=== PATIENT | male | born 1935 | race Caucasian/White ===

== ENCOUNTER 2021-11-07 12:41 | Inpatient (IN) | payer BC, MEDICARE ==
[~2021-11-07] VITALS: Ht 165.1 cm; Wt 74.4 kg
[~2021-11-07 12:41] MED LIST: FINA5TAB11 PO; LEVO500T89 MT; TAMS-11 MT
[2021-11-07] MEDS ORDERED: DILTIAZEM HCL 5MG/ML 5ML VIAL IV ONE (14:15)
[2021-11-07 14:21] LABS: BASOPHILS % 0.2 % (0.0-2.0); HEMATOCRIT. 40.1 % (42.0-52.0); LYMPHOCYTES % 7.6 % (20.0-50.0); MEAN CORPUSCULAR HEMOGLOBIN 28.6 pg (28.0-32.0); MEAN CORPUSCULAR VOLUME 88.4 fL (80.0-94.0); MEAN PLATELET VOLUME 8.2 fl (7.4-10.4); MONOCYTES % 10.3 % (2.0-8.0); NEUTROPHILS % 81.9 % (40.0-76.0); PLATELET 305 x1000/uL (130-400); RED BLOOD CELL COUNT 4.54 mill/uL (4.7-6.1); RED CELL DISTRIBUTION WIDTH 15.3 % (11.6-14.6)
[2021-11-07 14:31] LABS: CHLORIDE 106 mEq/L (98-107)
[2021-11-07] MEDS ORDERED: DILTIAZEM HCL 120MG CAPSULE CD 24HR PO ONE (15:00)
[2021-11-07] MEDS ORDERED: FUROSEMIDE 40MG/4ML VIAL IVP NR (15:30)
[2021-11-07] MEDS ORDERED: POTASSIUM CHLORIDE 20MEQ TABLET SR PO NR (15:45)
[2021-11-07 15:56] LABS: INR 1.4; PROTHROMBIN TIME 14.8 sec (9.6-11.0)
[2021-11-07] MEDS: METOPROLOL TARTRATE 25MG TABLET PO SCH ×2 (15:57→21:00)
[2021-11-07 16:06] LABS: MEAN CORPUSCULAR VOLUME 86.7 fL (80.0-94.0); MEAN PLATELET VOLUME 8.2 fl (7.4-10.4); PLATELET 263 x1000/uL (130-400); RED BLOOD CELL COUNT 4.26 mill/uL (4.7-6.1); RED CELL DISTRIBUTION WIDTH 15.5 % (11.6-14.6)
[2021-11-07 16:11] LABS: CHLORIDE 106 mEq/L (98-107)
[2021-11-07] MEDS ORDERED: FUROSEMIDE 20MG/2ML VIAL IVP SCH (16:15)
[2021-11-07] MEDS ORDERED: NITROGLYCERIN OINT 1GM/INCH UDPKT TD ONE (16:15)
[2021-11-07] MEDS ORDERED: GUAIFENESIN 200MG/10ML SUGAR FREE UDC PO PRN (16:45)
[2021-11-07] MEDS ORDERED: NITROGLYCERIN OINT 1GM/INCH UDPKT TD NR (16:45)
[2021-11-07] MEDS ORDERED: IPRATROPIUM/ALBUTEROL 0.5-3(2.5)MG/3ML NEB NEB PRN (16:45)
[2021-11-07] MEDS ORDERED: DOCUSATE SODIUM 100MG CAPSULE PO PRN (16:45)
[2021-11-07] MEDS ORDERED: ZOLPIDEM TARTRATE 5MG TABLET PO PRN (16:45)
[2021-11-07] MEDS ORDERED: ONDANSETRON HCL 4MG/2ML INJ IV PRN (16:45)
[2021-11-07] MEDS ORDERED: ACETAMINOPHEN 325MG TABLET PO PRN ×2 (16:45)
[2021-11-07] MEDS ORDERED: MAGNESIUM/ALUMINUM HYDROXIDE/SIMETHICONE 30ML UDC PO PRN (16:45)
[2021-11-07] MEDS ORDERED: TRAMADOL 50MG TABLET PO PRN (16:45)
[2021-11-07] MEDS ORDERED: NITROGLYCERIN 0.4MG TABLET SL SL PRN (16:45)
[2021-11-07] MEDS ORDERED: CLONIDINE 0.1MG TABLET PO PRN (16:45)
[2021-11-07 17:18] LABS: PLATELET ESTIMATE NORMAL
[2021-11-07 17:30] LABS: DIGOXIN 0.2 ng/mL (0.9-2.0)
[2021-11-07 17:39] LABS: CLARITY URINE CLEAR (CLEAR); COLOR URINE YELLOW (YELLOW); KETONES URINE TRACE (NEGATIVE); LEUKOCYTE ESTERASE URINE NEGATIVE (NEGATIVE); NITRITE URINE NEGATIVE (NEGATIVE); OCCULT BLOOD URINE NEGATIVE (NEGATIVE); PROTEIN URINE NEGATIVE (NEGATIVE); SPECIFIC GRAVITY URINE 1.016 (1.005-1.030)
[2021-11-07 17:40] LABS: FOLIC ACID (FOLATE) SERUM 13.9 ng/mL (>5.38)
[2021-11-07 17:50] LABS: *AMPHETAMINES SCREEN URINE NEGATIVE (NEGATIVE); CANNABINOID URINE SCREEN NEGATIVE (NEGATIVE); OPIATES URINE SCREEN NEGATIVE (NEGATIVE); PHENCYCLIDINE URINE SCREEN NEGATIVE (NEGATIVE)
[2021-11-07 17:51] LABS: *BARBITURATES SCREEN URINE NEGATIVE (NEGATIVE); *BENZODIAZEPINES SCREEN URINE NEGATIVE (NEGATIVE); *COCAINE SCREEN URINE NEGATIVE (NEGATIVE); METHADONE URINE SCREEN NEGATIVE (NEGATIVE)
[2021-11-07] MEDS ORDERED: ENOXAPARIN 80MG/0.8ML SYR SUBCUT SCH (18:00)
[2021-11-07 18:39] VITALS: BP 110/86
[2021-11-07 20:00] VITALS: BP_SYST 112; BP_SYST 128; BP_DIAS 58; BP_DIAS 64
[2021-11-07] MEDS: FAMOTIDINE 20MG TABLET PO SCH (21:45)
[2021-11-07] MEDS: ASCORBIC ACID 500 MG TABLET PO SCH (21:45)
[2021-11-07] MEDS: FUROSEMIDE 40MG/4ML VIAL IVP SCH (22:39)
[2021-11-08] VITALS (10 sets, daily range): BP systolic 107–138; BP diastolic 61–78
[2021-11-08 00:46] LABS: CREATINE KINASE MB FRACTION 4.1 ng/mL (0.5-3.6)
[2021-11-08 06:16] LABS: HEMATOCRIT. 34.8 % (42.0-52.0); HEMOGLOBIN. 11.4 g/dL (14.0-18.0); MEAN CORPUSCULAR HEMOGLOBIN 28.6 pg (28.0-32.0); MEAN CORPUSCULAR VOLUME 87.3 fL (80.0-94.0); MEAN PLATELET VOLUME 8.2 fl (7.4-10.4); PLATELET 260 x1000/uL (130-400); RED BLOOD CELL COUNT 3.98 mill/uL (4.7-6.1); RED CELL DISTRIBUTION WIDTH 15.4 % (11.6-14.6)
[2021-11-08 06:39] LABS: CHLORIDE 104 mEq/L (98-107)
[2021-11-08 06:45] LABS: PHOSPHORUS 3.8 mg/dL (2.5-4.9)
[2021-11-08 06:48] LABS: CREATINE KINASE 51 IU/L (39-308)
[2021-11-08] MEDS ORDERED: ASPIRIN 325MG EC TABLET PO SCH (09:00)
[2021-11-08] MEDS: METOPROLOL TARTRATE 25MG TABLET PO SCH ×2 (09:15→22:06)
[2021-11-08] MEDS: ASCORBIC ACID 500 MG TABLET PO SCH ×2 (09:15→22:06)
[2021-11-08] MEDS: FAMOTIDINE 20MG TABLET PO SCH ×2 (09:16→22:06)
[2021-11-08] MEDS: CHOLECALCIFEROL (D3) 1000 UNIT TABLET PO SCH (09:16)
[2021-11-08] MEDS: ZINC SULFATE 220 MG ( 50 ) CAPSULE PO SCH (09:16)
[2021-11-08 09:22] LABS: PLATELET ESTIMATE NORMAL
[2021-11-08] MEDS ORDERED: POTASSIUM CHLORIDE 20MEQ TABLET SR PO NR (09:30)
[2021-11-08] MEDS: FUROSEMIDE 40MG/4ML VIAL IVP SCH ×2 (10:26→22:07)
[2021-11-08] MEDS ORDERED: ENOXAPARIN 80MG/0.8ML SYR SUBCUT SCH (11:30)
[2021-11-08] MEDS ORDERED: POLYMYXIN B SULFATE 500000 UNITS/VIAL ONE (12:24)
[2021-11-08] MEDS ORDERED: BUPIVACAINE HCL/PF 0.25% (2.5MG/ML) 10ML ONE (12:24)
[2021-11-08] MEDS ORDERED: NOREPINEPHRINE 8 MG in DEXT 5% WATER 242 ML IV ONE (12:45)
[2021-11-08] MEDS ORDERED: EPINEPHRINE 5 MG in DEXT 5% WATER 245 ML IV ONE (12:45)
[2021-11-08] MEDS ORDERED: ALBUMIN HUMAN 25GM/100ML (25%) IV ONE (12:59)
[2021-11-08] MEDS ORDERED: ROCURONIUM BROMIDE 10MG/ML VIAL 5ML IV ONE (13:56)
[2021-11-08] MEDS ORDERED: DEXAMETHASONE 4MG/ML 1ML VIAL ONE (14:33)
[2021-11-08] MEDS ORDERED: CEFAZOLIN SODIUM 1000MG/VIAL ONE (14:33)
[2021-11-08] MEDS ORDERED: GLYCOPYRROLATE 0.2 MG/ML 2ML VIAL ONE ×2 (14:34)
[2021-11-08] MEDS ORDERED: NEOSTIGMINE METHYLSULFATE 1MG/ML 10 ML VIAL ONE (14:34)
[2021-11-08] MEDS ORDERED: MAGNESIUM 2 G PREMIX 50 ML IV PRN (14:45)
[2021-11-08] MEDS ORDERED: OXYCODONE HCL/ACETAMINOPHEN 5/325MG TABLET PO PRN ×2 (14:45)
[2021-11-08] MEDS ORDERED: CALCIUM CHLORIDE 3,000 MG in DEXT 5% WATER 250 ML IV PRN (14:45)
[2021-11-08] MEDS ORDERED: MAGNESIUM 1 G PREMIX 100 ML IV PRN (14:45)
[2021-11-08] MEDS ORDERED: KETOROLAC 30MG/ML VIAL IV PRN (14:45)
[2021-11-08] MEDS ORDERED: MAGNESIUM SULFATE 3 GM in DEXT 5% WATER 100 ML IV PRN (14:45)
[2021-11-08] MEDS ORDERED: FUROSEMIDE 40MG/4ML VIAL IVP NR ×2 (15:15→21:00)
[2021-11-08] MEDS ORDERED: ONDANSETRON HCL 4MG/2ML INJ IV PRN (15:15)
[2021-11-08] MEDS ORDERED: HYDROMORPHONE HCL/PF 2MG/ML CPJ IV PRN (15:15)
[2021-11-08] MEDS ORDERED: MEPERIDINE HCL/PF 25MG/ML CPJ IV PRN (15:15)
[2021-11-08] MEDS ORDERED: LABETALOL 5MG/ML SYR 20 MG/4 ML SYRINGE IV PRN (15:15)
[2021-11-08 15:32] LABS: BG BASE EXCESS 2.4 mmol/L (-2.0-2.0); BG CARBOXYHEMOGLOBIN 0.7 % (0.5-1.5); BG DEOXYHEMOGLOBIN 7.8 % (0.0-5.0); BG HCO3 ACT 26.3 mmol/L (22.0-26.0); BG METHEMOGLOBIN 0.3 % (0.0-1.5); BG OXYGEN SATURATION 92.1 % (92.0-98.5); BG OXYHEMOGLOBIN 91.2 % (94.0-97.0); BG PCO2 38.2 mmHg (35.0-45.0); BG PH 7.455 (7.350-7.450); BG PO2 65.1 mmHg (75.0-100.0); BG SAMPLE SITE RIGHT FEMORAL; BG TOTAL HEMOGLOBIN 12.9 g/dL (12.0-18.0); BG VENT MODE MASK - SIMPLE
[2021-11-08] MEDS: IPRATROPIUM/ALBUTEROL 0.5-3(2.5)MG/3ML NEB HHN SCH (15:48)
[2021-11-08] MEDS ORDERED: POTASSIUM CHLORIDE 20MEQ TABLET SR PO SCH (17:00)
[2021-11-08] MEDS: CEFAZOLIN 1000MG PREMIX 50 ML IV SCH (17:28)
[2021-11-08 17:54] LABS: HEMATOCRIT. 44.3 % (42.0-52.0); HEMOGLOBIN. 14.3 g/dL (14.0-18.0); MEAN CORPUSCULAR HEMOGLOBIN 28.3 pg (28.0-32.0); MEAN CORPUSCULAR VOLUME 87.4 fL (80.0-94.0); MEAN PLATELET VOLUME 8.8 fl (7.4-10.4); PLATELET 239 x1000/uL (130-400); RED BLOOD CELL COUNT 5.07 mill/uL (4.7-6.1); RED CELL DISTRIBUTION WIDTH 15.4 % (11.6-14.6)
[2021-11-08 18:02] LABS: CHLORIDE 103 mEq/L (98-107)
[2021-11-08 18:44] LABS: PLATELET ESTIMATE NORMAL
[2021-11-08] MEDS ORDERED: MAGNESIUM 4 G PREMIX 100 ML IV NR (22:00)
[2021-11-09] VITALS (22 sets, daily range): BP systolic 87–128; BP diastolic 48–94
[2021-11-09] MEDS: IPRATROPIUM/ALBUTEROL 0.5-3(2.5)MG/3ML NEB HHN SCH ×7 (00:55→20:18)
[2021-11-09] MEDS: CEFAZOLIN 1000MG PREMIX 50 ML IV SCH ×2 (02:12→11:26)
[2021-11-09 06:43] LABS: HEMATOCRIT. 38.6 % (42.0-52.0); HEMOGLOBIN. 12.7 g/dL (14.0-18.0); MEAN CORPUSCULAR HEMOGLOBIN 28.4 pg (28.0-32.0); MEAN CORPUSCULAR VOLUME 86.3 fL (80.0-94.0); MEAN PLATELET VOLUME 8.7 fl (7.4-10.4); PLATELET 258 x1000/uL (130-400); RED BLOOD CELL COUNT 4.48 mill/uL (4.7-6.1); RED CELL DISTRIBUTION WIDTH 14.8 % (11.6-14.6)
[2021-11-09] MEDS: BACITRACIN 15GM TUBE TOP SCH ×2 (09:00→17:19)
[2021-11-09] MEDS: METOPROLOL TARTRATE 25MG TABLET PO SCH ×3 (09:00→21:00)
[2021-11-09] MEDS ORDERED: POTASSIUM CHLORIDE 20MEQ TABLET SR PO NR (10:45)
[2021-11-09] MEDS: FUROSEMIDE 40MG/4ML VIAL IVP SCH ×2 (11:29→12:00)
[2021-11-09] MEDS: ASCORBIC ACID 500 MG TABLET PO SCH ×2 (11:30→23:10)
[2021-11-09] MEDS: CHOLECALCIFEROL (D3) 1000 UNIT TABLET PO SCH (11:30)
[2021-11-09] MEDS ORDERED: KCL 20MEQ/100ML PREMIX 100 ML IV NR (11:30)
[2021-11-09] MEDS: ZINC SULFATE 220 MG ( 50 ) CAPSULE PO SCH (11:30)
[2021-11-09] MEDS: FAMOTIDINE 20MG TABLET PO SCH ×2 (11:30→23:09)
[2021-11-09 11:47] LABS: PLATELET ESTIMATE NORMAL
[2021-11-09] MEDS ORDERED: NALOXONE HCL 0.4MG/ML VIAL IV PRN (18:00)
[2021-11-10] VITALS (53 sets, daily range): BP systolic 70–124; BP diastolic 27–76
[2021-11-10] MEDS ORDERED: DILTIAZEM HCL 5MG/ML 5ML VIAL IV NR (02:30)
[2021-11-10] MEDS ORDERED: DILTIAZEM 125MG/125ML PMX 100 ML IV SCH (02:30)
[2021-11-10] MEDS ORDERED: DILTIAZEM 125MG/125ML PMX 125 ML IV SCH (02:45)
[2021-11-10] MEDS: IPRATROPIUM/ALBUTEROL 0.5-3(2.5)MG/3ML NEB HHN SCH ×5 (04:50→20:30)
[2021-11-10 05:53] LABS: HEMATOCRIT. 35.8 % (42.0-52.0); HEMOGLOBIN. 11.7 g/dL (14.0-18.0); MEAN CORPUSCULAR VOLUME 85.7 fL (80.0-94.0); MEAN PLATELET VOLUME 8.8 fl (7.4-10.4); PLATELET 244 x1000/uL (130-400); RED BLOOD CELL COUNT 4.18 mill/uL (4.7-6.1); RED CELL DISTRIBUTION WIDTH 15.1 % (11.6-14.6)
[2021-11-10] MEDS ORDERED: DIGOXIN 500MCG/2ML AMP IV SCH (07:30)
[2021-11-10 07:31] LABS: PLATELET ESTIMATE NORMAL
[2021-11-10] MEDS: BACITRACIN 15GM TUBE TOP SCH ×2 (09:00→18:04)
[2021-11-10] MEDS: METOPROLOL TARTRATE 25MG TABLET PO SCH (09:00)
[2021-11-10] MEDS ORDERED: FUROSEMIDE 40MG/4ML VIAL IVP SCH (09:00)
[2021-11-10] MEDS ORDERED: SODIUM CHLORIDE 0.9% 250 ML IV ONE (09:45)
[2021-11-10] MEDS ORDERED: SODIUM CHLORIDE 0.9% 1,000 ML IV SCH (09:45)
[2021-11-10] MEDS: ZINC SULFATE 220 MG ( 50 ) CAPSULE PO SCH (09:46)
[2021-11-10] MEDS: FAMOTIDINE 20MG TABLET PO SCH ×2 (09:46→21:57)
[2021-11-10] MEDS: CHOLECALCIFEROL (D3) 1000 UNIT TABLET PO SCH (09:46)
[2021-11-10] MEDS: ASCORBIC ACID 500 MG TABLET PO SCH ×2 (09:46→21:57)
[2021-11-10] MEDS ORDERED: AMIODARONE HCL 900 MG in DEXT 5% WATER 482 ML IV SCH (11:00)
[2021-11-10] MEDS ORDERED: PHENYLEPHRINE 100 MG in DEXT 5% WATER 240 ML IV PRN (11:00)
[2021-11-10] MEDS ORDERED: AMIODARONE HCL 150 MG in DEXT 5% WATER 100 ML IV NR (11:30)
[2021-11-10] MEDS ORDERED: DIGOXIN 500MCG/2ML AMP IV NR (12:30)
[2021-11-10] MEDS: POTASSIUM CHLORIDE INJ 10 MEQ in SODIUM CHLORIDE 0.45% 1,000 ML IV SCH (12:45)
[2021-11-10 19:09] LABS: QFT MITOGEN VALUE 0.04 IU/mL (.); QFT TB GOLD PLUS Indeterminate (Negative); QFT TB1 AG VALUE 0.05 IU/mL (.)
[2021-11-11] VITALS (88 sets, daily range): BP systolic 71–137; BP diastolic 37–76
[2021-11-11] MEDS: IPRATROPIUM/ALBUTEROL 0.5-3(2.5)MG/3ML NEB HHN SCH ×6 (00:27→20:53)
[2021-11-11 05:53] LABS: HEMATOCRIT. 37.1 % (42.0-52.0); MEAN CORPUSCULAR HEMOGLOBIN 28.4 pg (28.0-32.0); MEAN PLATELET VOLUME 8.6 fl (7.4-10.4); PLATELET 193 x1000/uL (130-400); RED BLOOD CELL COUNT 4.22 mill/uL (4.7-6.1); RED CELL DISTRIBUTION WIDTH 15.3 % (11.6-14.6)
[2021-11-11 05:59] LABS: CHLORIDE 102 mEq/L (98-107)
[2021-11-11 07:10] LABS: PLATELET ESTIMATE NORMAL
[2021-11-11] MEDS: POTASSIUM CHLORIDE INJ 10 MEQ in SODIUM CHLORIDE 0.45% 1,000 ML IV SCH ×4 (09:08→10:29)
[2021-11-11] MEDS: CHOLECALCIFEROL (D3) 1000 UNIT TABLET PO SCH (09:08)
[2021-11-11] MEDS: ZINC SULFATE 220 MG ( 50 ) CAPSULE PO SCH (09:08)
[2021-11-11] MEDS: ASCORBIC ACID 500 MG TABLET PO SCH ×2 (09:09→23:49)
[2021-11-11] MEDS: FAMOTIDINE 20MG TABLET PO SCH ×2 (09:09→23:49)
[2021-11-11] MEDS: BACITRACIN 15GM TUBE TOP SCH ×2 (09:09→16:52)
[2021-11-11] MEDS ORDERED: DILTIAZEM 125MG/125ML PMX 100 ML IV PRN (10:15)
[2021-11-11 10:37] LABS: INR 1.2; PARTIAL THROMBOPLASTIN TIME 29.7 sec (23.4-31.0); PROTHROMBIN TIME 12.3 sec (9.6-11.0)
[2021-11-11 13:06] LABS: ANGIOTENSION CONVERTING ENZYME 24 U/L (14-82)
[2021-11-11] MEDS ORDERED: ESMOLOL 2500MG PREMIX 250 ML IV PRN (13:15)
[2021-11-11] MEDS ORDERED: DILTIAZEM 125MG/125ML PMX 125 ML IV PRN (14:19)
[2021-11-11] MEDS ORDERED: MAGNESIUM 2 G PREMIX 50 ML IV ONE (22:30)
[2021-11-12] VITALS (40 sets, daily range): BP systolic 90–144; BP diastolic 44–126
[2021-11-12] MEDS: IPRATROPIUM/ALBUTEROL 0.5-3(2.5)MG/3ML NEB HHN SCH ×6 (00:40→20:34)
[2021-11-12] MEDS: POTASSIUM CHLORIDE INJ 10 MEQ in SODIUM CHLORIDE 0.45% 1,000 ML IV SCH (06:47)
[2021-11-12] MEDS: FAMOTIDINE 20MG TABLET PO SCH ×2 (08:55→21:31)
[2021-11-12] MEDS: CHOLECALCIFEROL (D3) 1000 UNIT TABLET PO SCH (08:56)
[2021-11-12] MEDS: ASCORBIC ACID 500 MG TABLET PO SCH ×2 (08:56→21:33)
[2021-11-12] MEDS: BACITRACIN 15GM TUBE TOP SCH ×2 (08:57→17:23)
[2021-11-12] MEDS: ZINC SULFATE 220 MG ( 50 ) CAPSULE PO SCH (09:00)
[2021-11-12 10:07] LABS: ANTI-NUCLEAR ANTIBODIES DIRECT Positive (Negative)
[2021-11-12 10:23] LABS: BASOPHILS % 0.1 % (0.0-2.0); EOSINOPHILS % 0.6 % (0.0-5.0); HEMOGLOBIN. 12.3 g/dL (14.0-18.0); LYMPHOCYTES % 7.4 % (20.0-50.0); MEAN CORPUSCULAR HEMOGLOBIN 28.4 pg (28.0-32.0); MEAN CORPUSCULAR VOLUME 87.4 fL (80.0-94.0); MEAN PLATELET VOLUME 8.8 fl (7.4-10.4); MONOCYTES % 5.7 % (2.0-8.0); NEUTROPHILS % 86.2 % (40.0-76.0); PLATELET 214 x1000/uL (130-400); RED BLOOD CELL COUNT 4.35 mill/uL (4.7-6.1); RED CELL DISTRIBUTION WIDTH 15.1 % (11.6-14.6)
[2021-11-12 10:48] LABS: CHLORIDE 102 mEq/L (98-107)
[2021-11-12] MEDS ORDERED: DIGOXIN 500MCG/2ML AMP IV NR (10:57)
[2021-11-12] MEDS ORDERED: ENOXAPARIN 60MG/0.6ML SYR SUBCUT NR (12:41)
[2021-11-12 13:11] LABS: ANTI-MYELOPEROXIDASE AB < 9.0 U/mL (0.0-9.0); ANTI-PROTEINASE 3 ABS < 3.5 U/mL (0.0-3.5); ATYPICAL P-ANCA <1:20 titer (Neg:<1:20); CYTOPLASMIC C-ANCA <1:20 titer (Neg:<1:20); PERINUCLEAR P-ANCA <1:20 titer (Neg:<1:20)
[2021-11-12] MEDS ORDERED: METOPROLOL TARTRATE 25MG TABLET PO SCH (21:00)
[2021-11-13] VITALS (41 sets, daily range): BP systolic 81–131; BP diastolic 43–73
[2021-11-13] MEDS: IPRATROPIUM/ALBUTEROL 0.5-3(2.5)MG/3ML NEB HHN SCH ×3 (00:50→08:34)
[2021-11-13] MEDS: ENOXAPARIN 60MG/0.6ML SYR SUBCUT SCH ×2 (01:23→10:01)
[2021-11-13] MEDS: POTASSIUM CHLORIDE INJ 10 MEQ in SODIUM CHLORIDE 0.45% 1,000 ML IV SCH ×2 (02:33→22:22)
[2021-11-13 06:17] LABS: BASOPHILS % 0.3 % (0.0-2.0); EOSINOPHILS % 0.9 % (0.0-5.0); HEMATOCRIT. 32.3 % (42.0-52.0); HEMOGLOBIN. 10.6 g/dL (14.0-18.0); LYMPHOCYTES % 9.3 % (20.0-50.0); MEAN CORPUSCULAR HEMOGLOBIN 28.4 pg (28.0-32.0); MEAN CORPUSCULAR VOLUME 86.8 fL (80.0-94.0); MEAN PLATELET VOLUME 8.8 fl (7.4-10.4); MONOCYTES % 10.2 % (2.0-8.0); NEUTROPHILS % 79.3 % (40.0-76.0); PLATELET 169 x1000/uL (130-400); RED BLOOD CELL COUNT 3.73 mill/uL (4.7-6.1); RED CELL DISTRIBUTION WIDTH 14.9 % (11.6-14.6)
[2021-11-13 06:35] LABS: CHLORIDE 104 mEq/L (98-107)
[2021-11-13] MEDS: BACITRACIN 15GM TUBE TOP SCH ×2 (09:00→16:27)
[2021-11-13] MEDS: ASCORBIC ACID 500 MG TABLET PO SCH ×2 (10:00→21:31)
[2021-11-13] MEDS: CHOLECALCIFEROL (D3) 1000 UNIT TABLET PO SCH (10:00)
[2021-11-13] MEDS: FAMOTIDINE 20MG TABLET PO SCH ×2 (10:01→21:31)
[2021-11-13] MEDS: ZINC SULFATE 220 MG ( 50 ) CAPSULE PO SCH (10:01)
[2021-11-13] MEDS: METOPROLOL TARTRATE 25MG TABLET PO SCH ×2 (10:05→16:27)
[2021-11-13] MEDS: MIDODRINE HCL 2.5MG TABLET PO SCH ×3 (10:18→18:05)
[2021-11-13 13:31] LABS: HEMATOCRIT 34.4 % (42.0-52.0); HEMOGLOBIN 10.9 g/dL (14.0-18.0); MEAN CORPUSCULAR HEMOGLOBIN 27.8 pg (28.0-32.0); MEAN CORPUSCULAR VOLUME 87.5 fL (80.0-94.0); PLATELET 195 x1000/uL (130-400); RED BLOOD CELL COUNT 3.93 mill/uL (4.7-6.1)
[2021-11-13] MEDS ORDERED: IRON SUCROSE COMPLEX 100 MG/5 ML ML IV NR (17:31)
[2021-11-13] MEDS ORDERED: ENOXAPARIN 40MG/0.4ML SYR SUBCUT SCH (18:00)
[2021-11-13] MEDS: ENOXAPARIN 40MG/0.4ML SYR SUBCUT SCH (21:42)
[2021-11-13] MEDS ORDERED: ENOXAPARIN 60MG/0.6ML SYR SUBCUT SCH (23:00)
[2021-11-14] VITALS (26 sets, daily range): BP systolic 64–141; BP diastolic 46–86
[2021-11-14] MEDS: METOPROLOL TARTRATE 25MG TABLET PO SCH ×3 (01:06→17:18)
[2021-11-14 06:26] LABS: BASOPHILS % 0.2 % (0.0-2.0); EOSINOPHILS % 1.4 % (0.0-5.0); HEMATOCRIT. 32.2 % (42.0-52.0); HEMOGLOBIN. 10.6 g/dL (14.0-18.0); LYMPHOCYTES % 9.5 % (20.0-50.0); MEAN CORPUSCULAR HEMOGLOBIN 28.6 pg (28.0-32.0); MEAN CORPUSCULAR VOLUME 87.1 fL (80.0-94.0); MONOCYTES % 11.2 % (2.0-8.0); NEUTROPHILS % 77.7 % (40.0-76.0); PLATELET 186 x1000/uL (130-400); RED CELL DISTRIBUTION WIDTH 14.8 % (11.6-14.6)
[2021-11-14 06:36] LABS: CHLORIDE 104 mEq/L (98-107)
[2021-11-14] MEDS: BACITRACIN 15GM TUBE TOP SCH ×2 (09:00→21:20)
[2021-11-14] MEDS: MIDODRINE HCL 2.5MG TABLET PO SCH ×3 (09:00→17:17)
[2021-11-14] MEDS: FAMOTIDINE 20MG TABLET PO SCH ×2 (10:04→21:20)
[2021-11-14] MEDS: CHOLECALCIFEROL (D3) 1000 UNIT TABLET PO SCH (10:04)
[2021-11-14] MEDS: ENOXAPARIN 40MG/0.4ML SYR SUBCUT SCH (10:04)
[2021-11-14] MEDS: ASCORBIC ACID 500 MG TABLET PO SCH ×2 (10:05→21:20)
[2021-11-14] MEDS: ZINC SULFATE 220 MG ( 50 ) CAPSULE PO SCH (10:05)
[2021-11-14] MEDS ORDERED: POTASSIUM CHLORIDE 20MEQ TABLET SR PO NR (11:00)
[2021-11-14 13:55] LABS: CLARITY URINE CLOUDY (CLEAR); COLOR URINE BLOODY (YELLOW)
[2021-11-14 13:56] LABS: KETONES URINE NEGATIVE (NEGATIVE); LEUKOCYTE ESTERASE URINE NEGATIVE (NEGATIVE); NITRITE URINE NEGATIVE (NEGATIVE); OCCULT BLOOD URINE 3+ (NEGATIVE); PROTEIN URINE 1+ (NEGATIVE); UROBILINOGEN URINE 0.2 E.U./dL (0.2-1.0)
[2021-11-14] MEDS ORDERED: IRON SUCROSE COMPLEX 100 MG/5 ML ML IV NR (21:00)
[2021-11-14] MEDS: ENOXAPARIN 60MG/0.6ML SYR SUBCUT SCH (21:21)
[2021-11-15] VITALS (20 sets, daily range): BP systolic 101–152; BP diastolic 49–98
[2021-11-15] MEDS: METOPROLOL TARTRATE 25MG TABLET PO SCH ×3 (02:41→17:21)
[2021-11-15] MEDS: DUTASTERIDE 0.5MG CAPSULE PO SCH (08:59)
[2021-11-15] MEDS: MIDODRINE HCL 2.5MG TABLET PO SCH ×3 (09:00→17:00)
[2021-11-15 10:15] LABS: BASOPHILS % 0.2 % (0.0-2.0); EOSINOPHILS % 0.4 % (0.0-5.0); HEMATOCRIT. 38.1 % (42.0-52.0); HEMOGLOBIN. 12.1 g/dL (14.0-18.0); LYMPHOCYTES % 7.9 % (20.0-50.0); MEAN CORPUSCULAR HEMOGLOBIN 27.9 pg (28.0-32.0); MEAN CORPUSCULAR VOLUME 87.9 fL (80.0-94.0); MEAN PLATELET VOLUME 8.6 fl (7.4-10.4); MONOCYTES % 10.2 % (2.0-8.0); NEUTROPHILS % 81.3 % (40.0-76.0); PLATELET 246 x1000/uL (130-400); RED BLOOD CELL COUNT 4.33 mill/uL (4.7-6.1)
[2021-11-15] MEDS ORDERED: METOPROLOL TARTRATE 5MG/5ML VIAL IV NR (10:30)
[2021-11-15] MEDS ORDERED: IRON SUCROSE COMPLEX 100 MG/5 ML ML IV NR (11:00)
[2021-11-15] MEDS: ZINC SULFATE 220 MG ( 50 ) CAPSULE PO SCH (11:39)
[2021-11-15] MEDS: ASCORBIC ACID 500 MG TABLET PO SCH ×2 (11:39→21:34)
[2021-11-15] MEDS: CHOLECALCIFEROL (D3) 1000 UNIT TABLET PO SCH (11:39)
[2021-11-15] MEDS: ENOXAPARIN 60MG/0.6ML SYR SUBCUT SCH ×2 (11:40→21:34)
[2021-11-15] MEDS: BACITRACIN 15GM TUBE TOP SCH ×2 (11:40→17:22)
[2021-11-15] MEDS: FAMOTIDINE 20MG TABLET PO SCH ×2 (11:40→21:34)
[2021-11-15 12:51] LABS: CLARITY URINE CLEAR (CLEAR); COLOR URINE YELLOW (YELLOW); KETONES URINE TRACE (NEGATIVE); LEUKOCYTE ESTERASE URINE NEGATIVE (NEGATIVE); NITRITE URINE NEGATIVE (NEGATIVE); OCCULT BLOOD URINE 3+ (NEGATIVE); PROTEIN URINE NEGATIVE (NEGATIVE); SPECIFIC GRAVITY URINE 1.015 (1.005-1.030); UROBILINOGEN URINE 0.2 E.U./dL (0.2-1.0)
[2021-11-15] MEDS: SULFAMETHOXAZOLE/TRIMETHOPRIM 400/80MG TAB PO SCH (17:21)
[2021-11-16] VITALS (11 sets, daily range): BP systolic 93–128; BP diastolic 49–78
[2021-11-16] MEDS: METOPROLOL TARTRATE 25MG TABLET PO SCH ×3 (01:00→18:33)
[2021-11-16 05:46] LABS: BASOPHILS % 0.5 % (0.0-2.0); EOSINOPHILS % 0.9 % (0.0-5.0); HEMATOCRIT. 32.1 % (42.0-52.0); HEMOGLOBIN. 10.4 g/dL (14.0-18.0); LYMPHOCYTES % 14.4 % (20.0-50.0); MEAN CORPUSCULAR VOLUME 86.5 fL (80.0-94.0); MEAN PLATELET VOLUME 9.5 fl (7.4-10.4); MONOCYTES % 13.6 % (2.0-8.0); NEUTROPHILS % 70.6 % (40.0-76.0); PLATELET 220 x1000/uL (130-400); RED BLOOD CELL COUNT 3.71 mill/uL (4.7-6.1); RED CELL DISTRIBUTION WIDTH 14.9 % (11.6-14.6)
[2021-11-16 06:20] LABS: CHLORIDE 106 mEq/L (98-107)
[2021-11-16] MEDS: DUTASTERIDE 0.5MG CAPSULE PO SCH (08:37)
[2021-11-16] MEDS: ZINC SULFATE 220 MG ( 50 ) CAPSULE PO SCH (08:37)
[2021-11-16] MEDS: FAMOTIDINE 20MG TABLET PO SCH ×2 (08:37→21:17)
[2021-11-16] MEDS: MIDODRINE HCL 2.5MG TABLET PO SCH ×3 (08:37→18:32)
[2021-11-16] MEDS: SULFAMETHOXAZOLE/TRIMETHOPRIM 400/80MG TAB PO SCH ×2 (08:37→21:17)
[2021-11-16] MEDS: ASCORBIC ACID 500 MG TABLET PO SCH ×2 (08:37→21:18)
[2021-11-16] MEDS: CHOLECALCIFEROL (D3) 1000 UNIT TABLET PO SCH (08:38)
[2021-11-16] MEDS: BACITRACIN 15GM TUBE TOP SCH ×2 (08:38→17:00)
[2021-11-16 09:07] LABS: ANTI-DNA DOUBLE STRANDED QUANT < 1 IU/mL (0-9)
[2021-11-16] MEDS ORDERED: GENTAMICIN/NS IRRIGATION 500 ML IR ONE (10:31)
[2021-11-16] MEDS ORDERED: IODIXANOL 320MG/ML 100 ML BOTTLE IV ONE (10:31)
[2021-11-16] MEDS ORDERED: LIDOCAINE HCL 1% 20ML VIAL (Pyxis) INJ ONE (10:31)
[2021-11-16] MEDS ORDERED: CEFAZOLIN 1000MG PREMIX 100 ML IV ONE (10:54)
[2021-11-16] MEDS ORDERED: MIDAZOLAM HCL 2 MG/2 ML VIAL ONE (12:14)
[2021-11-16] MEDS ORDERED: FENTANYL CITRATE/PF 50MCG/ML 2ML VIAL ONE (12:14)
[2021-11-16] MEDS ORDERED: DIPHENHYDRAMINE 50MG/ML VIAL ONE (12:52)
[2021-11-16] MEDS ORDERED: GENTAMICIN SULF 40MG/ML 2ML VIAL ONE (13:17)
[2021-11-16] MEDS ORDERED: HYDROCODONE/ACETAMINOPHEN 5/325MG TABLET PO PRN (14:00)
[2021-11-16] MEDS ORDERED: NALOXONE HCL 0.4MG/ML VIAL IV PRN (14:00)
[2021-11-16] MEDS: SOTALOL HCL 80MG TABLET PO SCH (21:18)
[2021-11-17] VITALS (12 sets, daily range): BP systolic 108–142; BP diastolic 53–73
[2021-11-17 06:27] LABS: CHLORIDE 108 mEq/L (98-107)
[2021-11-17 06:34] LABS: BASOPHILS % 0.3 % (0.0-2.0); HEMATOCRIT. 30.8 % (42.0-52.0); HEMOGLOBIN. 10.1 g/dL (14.0-18.0); LYMPHOCYTES % 13.4 % (20.0-50.0); MEAN CORPUSCULAR HEMOGLOBIN 28.7 pg (28.0-32.0); MEAN CORPUSCULAR VOLUME 87.4 fL (80.0-94.0); MEAN PLATELET VOLUME 8.7 fl (7.4-10.4); MONOCYTES % 13.5 % (2.0-8.0); NEUTROPHILS % 71.8 % (40.0-76.0); PLATELET 214 x1000/uL (130-400); RED BLOOD CELL COUNT 3.52 mill/uL (4.7-6.1); RED CELL DISTRIBUTION WIDTH 14.8 % (11.6-14.6)
[2021-11-17] MEDS: APIXABAN 5 MG TABLET PO SCH ×2 (09:51→18:21)
[2021-11-17] MEDS: ASCORBIC ACID 500 MG TABLET PO SCH ×2 (09:51→21:30)
[2021-11-17] MEDS: DUTASTERIDE 0.5MG CAPSULE PO SCH (09:51)
[2021-11-17] MEDS: CHOLECALCIFEROL (D3) 1000 UNIT TABLET PO SCH (09:51)
[2021-11-17] MEDS: ZINC SULFATE 220 MG ( 50 ) CAPSULE PO SCH (09:51)
[2021-11-17] MEDS: SULFAMETHOXAZOLE/TRIMETHOPRIM 400/80MG TAB PO SCH ×2 (09:51→21:30)
[2021-11-17] MEDS: FAMOTIDINE 20MG TABLET PO SCH ×2 (09:52→21:30)
[2021-11-17] MEDS: MIDODRINE HCL 2.5MG TABLET PO SCH ×3 (09:52→17:00)
[2021-11-17] MEDS: BACITRACIN 15GM TUBE TOP SCH ×2 (09:54→18:21)
[2021-11-17] MEDS: SOTALOL HCL 80MG TABLET PO SCH ×2 (09:54→21:30)
[2021-11-17 13:06] LABS: ANA IFA Negative (.)
[2021-11-18] VITALS (12 sets, daily range): BP systolic 116–134; BP diastolic 50–85
[2021-11-18] MEDS: MIDODRINE HCL 2.5MG TABLET PO SCH ×3 (09:00→17:00)
[2021-11-18] MEDS: ZINC SULFATE 220 MG ( 50 ) CAPSULE PO SCH (09:15)
[2021-11-18] MEDS: CHOLECALCIFEROL (D3) 1000 UNIT TABLET PO SCH (09:15)
[2021-11-18] MEDS: FAMOTIDINE 20MG TABLET PO SCH ×2 (09:15→20:52)
[2021-11-18] MEDS: APIXABAN 5 MG TABLET PO SCH ×2 (09:15→17:54)
[2021-11-18] MEDS: ASCORBIC ACID 500 MG TABLET PO SCH ×2 (09:16→20:52)
[2021-11-18] MEDS: SULFAMETHOXAZOLE/TRIMETHOPRIM 400/80MG TAB PO SCH (09:16)
[2021-11-18] MEDS: DUTASTERIDE 0.5MG CAPSULE PO SCH (09:17)
[2021-11-18] MEDS: SOTALOL HCL 80MG TABLET PO SCH ×2 (09:17→20:52)
[2021-11-18] MEDS: BACITRACIN 15GM TUBE TOP SCH ×2 (09:18→17:54)
[2021-11-18] MEDS: POLYETHYLENE GLYCOL 3350 (17GM) 1 DOSE PACK PO SCH (11:06)
[2021-11-18] MEDS: LIDOCAINE 5% PATCH TOP SCH (15:32)
[2021-11-19] VITALS (12 sets, daily range): BP systolic 112–166; BP diastolic 62–87
[2021-11-19 06:40] LABS: HEMATOCRIT. 32.4 % (42.0-52.0); HEMOGLOBIN. 10.9 g/dL (14.0-18.0); MEAN CORPUSCULAR HEMOGLOBIN 28.8 pg (28.0-32.0); MEAN CORPUSCULAR VOLUME 85.8 fL (80.0-94.0); MEAN PLATELET VOLUME 8.6 fl (7.4-10.4); PLATELET 217 x1000/uL (130-400); RED BLOOD CELL COUNT 3.78 mill/uL (4.7-6.1); RED CELL DISTRIBUTION WIDTH 14.8 % (11.6-14.6)
[2021-11-19 07:32] LABS: CHLORIDE 108 mEq/L (98-107)
[2021-11-19] MEDS: FAMOTIDINE 20MG TABLET PO SCH ×2 (08:47→21:55)
[2021-11-19] MEDS: CHOLECALCIFEROL (D3) 1000 UNIT TABLET PO SCH (08:47)
[2021-11-19] MEDS: DUTASTERIDE 0.5MG CAPSULE PO SCH (08:47)
[2021-11-19] MEDS: ASCORBIC ACID 500 MG TABLET PO SCH ×2 (08:47→21:55)
[2021-11-19] MEDS: SOTALOL HCL 80MG TABLET PO SCH ×2 (08:48→21:56)
[2021-11-19] MEDS: APIXABAN 5 MG TABLET PO SCH ×2 (08:48→17:35)
[2021-11-19] MEDS: POLYETHYLENE GLYCOL 3350 (17GM) 1 DOSE PACK PO SCH (08:48)
[2021-11-19] MEDS: ZINC SULFATE 220 MG ( 50 ) CAPSULE PO SCH (08:48)
[2021-11-19] MEDS: MIDODRINE HCL 2.5MG TABLET PO SCH ×3 (08:49→17:00)
[2021-11-19] MEDS: BACITRACIN 15GM TUBE TOP SCH ×2 (08:49→17:36)
[2021-11-19] MEDS: LIDOCAINE 5% PATCH TOP SCH (08:49)
[2021-11-19 18:36] LABS: PLATELET ESTIMATE NORMAL
[2021-11-20] VITALS (12 sets, daily range): BP systolic 84–161; BP diastolic 36–85
[2021-11-20 06:26] LABS: HEMATOCRIT 34.6 % (42.0-52.0); HEMOGLOBIN 11.5 g/dL (14.0-18.0); MEAN CORPUSCULAR HEMOGLOBIN 28.8 pg (28.0-32.0); MEAN CORPUSCULAR VOLUME 86.8 fL (80.0-94.0); PLATELET 247 x1000/uL (130-400); RED BLOOD CELL COUNT 3.99 mill/uL (4.7-6.1)
[2021-11-20 07:23] LABS: CHLORIDE 107 mEq/L (98-107)
[2021-11-20] MEDS: MIDODRINE HCL 2.5MG TABLET PO SCH ×3 (09:00→17:12)
[2021-11-20] MEDS: LIDOCAINE 5% PATCH TOP SCH (09:00)
[2021-11-20] MEDS: BACITRACIN 15GM TUBE TOP SCH ×2 (09:00→17:00)
[2021-11-20] MEDS: ASCORBIC ACID 500 MG TABLET PO SCH ×2 (09:12→21:07)
[2021-11-20] MEDS: POLYETHYLENE GLYCOL 3350 (17GM) 1 DOSE PACK PO SCH (09:12)
[2021-11-20] MEDS: APIXABAN 5 MG TABLET PO SCH ×2 (09:12→17:12)
[2021-11-20] MEDS: CHOLECALCIFEROL (D3) 1000 UNIT TABLET PO SCH (09:12)
[2021-11-20] MEDS: ZINC SULFATE 220 MG ( 50 ) CAPSULE PO SCH (09:13)
[2021-11-20] MEDS: FAMOTIDINE 20MG TABLET PO SCH ×2 (09:13→21:06)
[2021-11-20] MEDS: SOTALOL HCL 80MG TABLET PO SCH ×2 (09:16→21:08)
[2021-11-20] MEDS: DUTASTERIDE 0.5MG CAPSULE PO SCH (09:16)
[2021-11-21] VITALS (13 sets, daily range): BP systolic 113–149; BP diastolic 66–86
[2021-11-21] MEDS: POLYETHYLENE GLYCOL 3350 (17GM) 1 DOSE PACK PO SCH (09:00)
[2021-11-21] MEDS: MIDODRINE HCL 2.5MG TABLET PO SCH ×3 (09:00→17:00)
[2021-11-21] MEDS: LIDOCAINE 5% PATCH TOP SCH (09:00)
[2021-11-21] MEDS: DUTASTERIDE 0.5MG CAPSULE PO SCH (09:34)
[2021-11-21] MEDS: CHOLECALCIFEROL (D3) 1000 UNIT TABLET PO SCH (09:34)
[2021-11-21] MEDS: ASCORBIC ACID 500 MG TABLET PO SCH ×2 (09:34→20:56)
[2021-11-21] MEDS: APIXABAN 5 MG TABLET PO SCH ×2 (09:35→17:55)
[2021-11-21] MEDS: SOTALOL HCL 80MG TABLET PO SCH ×2 (09:35→20:56)
[2021-11-21] MEDS: FAMOTIDINE 20MG TABLET PO SCH ×2 (09:36→20:56)
[2021-11-21] MEDS: ZINC SULFATE 220 MG ( 50 ) CAPSULE PO SCH (09:36)
[2021-11-21] MEDS: BACITRACIN 15GM TUBE TOP SCH ×2 (09:36→17:00)
[2021-11-21] MEDS ORDERED: FUROSEMIDE 20MG TABLET PO SCH (12:45)
[2021-11-21] MEDS ORDERED: SPIRONOLACTONE 25MG TABLET PO SCH (12:45)
== END 2021-11-21 22:10 | DRG 270 ==
LOC: ER 12:41 → 7EST 16:07 → ENRESERV 17:10 → CVICU 11-08 21:09 → 5EST 11-09 13:10 → CVICU 11-10 10:12 → 5EST 11-14 14:30
PROVIDERS: ADMIT Internal Medicine; ATTEND Internal Medicine
PROC: 0W9D30Z Drainage of Pericardial Cavity with Drainage Device, Percutaneous Approach (ICD-10-PCS; 2021-11-08)
PROC: 0W9B30Z Drainage of Left Pleural Cavity with Drainage Device, Percutaneous Approach (ICD-10-PCS; 2021-11-08)
PROC: 02BN0ZX Excision of Pericardium, Open Approach, Diagnostic (ICD-10-PCS; 2021-11-08)
PROC: 02HV33Z Insertion of Infusion Device into Superior Vena Cava, Percutaneous Approach (ICD-10-PCS; 2021-11-11)
PROC: B548ZZA Ultrasonography of Superior Vena Cava, Guidance (ICD-10-PCS; 2021-11-11)
PROC: 02HK3JZ Insertion of Pacemaker Lead into Right Ventricle, Percutaneous Approach (ICD-10-PCS; principal; 2021-11-16)
PROC: 02H63JZ Insertion of Pacemaker Lead into Right Atrium, Percutaneous Approach (ICD-10-PCS; 2021-11-16)
PROC: 0JH606Z Insertion of Pacemaker, Dual Chamber into Chest Subcutaneous Tissue and Fascia, Open Approach (ICD-10-PCS; 2021-11-16)
DX: I48.92 Unspecified atrial flutter (principal); I50.43 Acute on chronic combined systolic (congestive) and diastolic (congestive) heart failure; J96.01 Acute respiratory failure with hypoxia; G93.41 Metabolic encephalopathy; I31.4 Cardiac tamponade; E44.0 Moderate protein-calorie malnutrition; J91.8 Pleural effusion in other conditions classified elsewhere; I31.3 Pericardial effusion (noninflammatory); I42.9 Cardiomyopathy, unspecified; I11.0 Hypertensive heart disease with heart failure; I49.5 Sick sinus syndrome; D72.829 Elevated white blood cell count, unspecified; I48.0 Paroxysmal atrial fibrillation; D64.9 Anemia, unspecified; N40.0 Benign prostatic hyperplasia without lower urinary tract symptoms; E87.6 Hypokalemia; E03.9 Hypothyroidism, unspecified; R31.9 Hematuria, unspecified; J98.2 Interstitial emphysema; E83.41 Hypermagnesemia; N40.1 Benign prostatic hyperplasia with lower urinary tract symptoms; R33.8 Other retention of urine; R26.9 Unspecified abnormalities of gait and mobility; R53.81 Other malaise; Z82.49 Family history of ischemic heart disease and other diseases of the circulatory system; Z20.822 Contact with and (suspected) exposure to COVID-19; Z68.27 Body mass index [BMI] 27.0-27.9, adult; I51.3 Intracardiac thrombosis, not elsewhere classified
CPT/HCPCS: 33208; 36415; 36600; 71045; 75820; 76604; 76937; 80048; 80053; 80162; 80305; 81003; 82164; 82330; 82375; 82550; 82553; 82607; 82746; 82805; 82962; 83520; 83540; 83550; 83605; 83735; 83880; 84100; 84145; 84153; 84439; 84443; 84484; 85025; 85027; 85651; 86038; 86140; 86225; 86256; 86480; 87070; 87075; 87102; 87210; 87426; 88108; 88305; 93005; 93306; 93308; 93970; 94640; 97116; 97162; 97166; 97530; 99291; A4565; C1725; C1729; C1785; C1893; C1898; J0282; J0690; J1100; J1160; J1170; J1200; J1580; J1650; J1885; J1940; J2175; J2250; J2710; J3010; J3475; J3480; J3490; J7060; L3908; P9047; Q9967; A4315; G0103